=== PATIENT | male | born 1945 | race Caucasian/White ===

== ENCOUNTER 2017-09-25 07:05 | Day surgery (SDC) | payer OTHER ==
[~2017-09-25] VITALS: Ht 177.8 cm; Wt 82.0 kg
[~2017-09-25 07:05] MED LIST: COMBIVENT RESPIM4 GM IH; FLOMAX0.4 MG PO; LISINOPRIL20 MG PO; PROVENTIL,2.5 MG/3 M IH; SIMVASTATIN40 MG PO; SYMBICORT60 INHALAT IH; VENLAFAXINE HCL75 M3 PO; VITAMIN D31000 UNIT PO; XARELTO20 MG PO
== END 2017-09-25 13:15 | disposition home or self-care (01) ==
LOC: CATH 07:05
DX: I25.10 Atherosclerotic heart disease of native coronary artery without angina pectoris (principal); I10 Essential (primary) hypertension; E78.5 Hyperlipidemia, unspecified; I48.0 Paroxysmal atrial fibrillation; J43.1 Panlobular emphysema; F17.210 Nicotine dependence, cigarettes, uncomplicated; Z79.01 Long term (current) use of anticoagulants
CPT/HCPCS: 93005; C1769; C1887; J1644; J2250; J3010; J7040